=== PATIENT | female | born 1980 | race African-American/Black ===

== ENCOUNTER 2017-05-01 09:11 | Emergency (ER) | payer OTHER ==
[2017-05-01 09:21] VITALS: BP 121/94; PULSE 96; TEMP 97.9; BMI 53.4
[2017-05-01] MEDS ORDERED: IBUPROFEN 600 MG TABLET (FP) PO ONE ×2 (10:12→10:13)
--- NOTE | 2017-05-01 10:16 | PDOC ---
History of Present Illness - General Chief Complaint: Chronic pain Stated Complaint: SWOLLEN KNEE Time Seen by Provider: 05/01/17 09:32 History Source: Patient Exam Limitations: No Limitations - History of Present Illness Initial Comments: 05/01/17 10:13 Agent here with complaints of bilateral knee pain. onset was in her left knee approximately one week ago and now has migrated to both sides. feels they are hypermobile and does not feel particularly stable. Denies numbness or tingling to feet. 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 Has never had a true incident where she feels incurred an injury. has had a weight gain the past few months and may have some relationship to her knee pain. He took Aleve last night with minimal resolved. Timing/Duration: unsure, 1 week Severity: mild, moderate Associated Symptoms: reports: denies symptoms Past History - Travel Traveled outside of the country in the last 30 days: No Close contact w/someone who was outside of country & ill: No - Past Medical History Allergies/Adverse Reactions: Allergies Allergy/AdvReac Type Severity Reaction Status Date / Time No Known Allergies Allergy Verified 05/01/17 09:17 Home Medications: Ambulatory Orders Naproxen 500 mg PO TID #30 tablet 05/01/17 COPD: No Diabetes: Yes (IDDM) HTN: Yes - Suicide/Smoking/Psychosocial Hx Smoking History: Never smoked Hx Alcohol Use: No Drug/Substance Use Hx: No Review of Systems - Review of Systems Able to Perform ROS?: Yes Is the patient limited Yoruba proficient: Yes Constitutional: Yes: See HPI. No: Symptoms Reported, Fever, Malaise HEENTM: Yes: See HPI. No: Symptoms Reported Respiratory: Yes: See HPI. No: Symptoms reported Cardiac (ROS): No: Symptoms Reported Musculoskeletal: Yes: Symptoms Reported, See HPI, Joint Pain, Joint Swelling, Muscle Pain *Physical Exam - Vital Signs Last Vital Signs Temp Pulse Resp BP Pulse Ox 97.9 F 96 H 20 121/94 98 05/01/17 09:17 05/01/17 09:17 05/01/17 09:17 05/01/17 09:17 05/01/17 09:17 - Physical Exam General Appearance: Yes: Appropriately Dressed, Apparent Distress HEENT: positive: LAMINE, Normal ENT Inspection, TMs Normal, Pharynx Normal Neck: positive: Supple. negative: Tender Respiratory/Chest: positive: Lungs Clear Musculoskeletal: positive: Decreased Range of Motion (due to pain,). negative: Normal Inspection, Vertebral Tenderness Extremity: positive: Normal Capillary Refill, Other (patellas are mobile, with no crepitus or step-offs however with movement reproduces lateral and medial pain. Difficult to examinedue to patient's obesity. Neurovascular intact to feet without any peripheral edema. ). negative: Normal Inspection, Normal Range of Motion Integumentary: positive: Normal Color, Dry, Warm Medical Decision Making - Medical Decision Making 05/01/17 10:46 X-rays with multiple bone spurs and evidence of arthritic changes, no fractures or dislocation. Right worse than left. We'll provide Derrick wrap, recommend neoprene sleeve, NSAIDs and follow-up with orthopedist. Encouraged to discuss weight loss program PMD assist with orthopedic and diabetic issues. 05/01/17 12:01 *DC/Admit/Observation/Transfer Diagnosis at time of Disposition: Strain of knee, bilateral - Discharge Dispostion Disposition: HOME Condition at time of disposition: Stable Admit: No - Prescriptions Prescriptions: Naproxen 500 mg PO TID #30 tablet - Referrals Referrals: Yaima Templeton MD [Primary Care Provider] - Yovany Izquierdo MD [Staff Physician] - - Patient Instructions Printed Discharge Instructions: DI for Knee Pain Additional Instructions: Rest, ice to area on and off for 15 minutes 4-6 times a day Avoid heavy lifting or exercise until pain and swelling is resolved or until further directed Keep area highly elevated to reduce swelling Use splints/Derrick wrap as directed Followup with orthopedist in one to 2 days if not improving, if significantly improved may wait one week for followup with orthopedist May use Apperson 500 mg tablet every 8 hours as needed for pain - Post Discharge Activity Forms/Work/School Notes: Back to Work
== END 2017-05-01 10:54 | disposition home or self-care (01) ==
LOC: JER 09:11
DX: S83.8X2A Sprain of other specified parts of left knee, initial encounter (principal); S83.8X1A Sprain of other specified parts of right knee, initial encounter; X50.9XXA Other and unspecified overexertion or strenuous movements or postures, initial encounter; Y93.F2 Activity, caregiving, lifting; Y92.89 Other specified places as the place of occurrence of the external cause; Y99.0 Civilian activity done for income or pay; I10 Essential (primary) hypertension; E11.9 Type 2 diabetes mellitus without complications; Z79.4 Long term (current) use of insulin
CPT/HCPCS: 73562-TC-LT-FY; 73562-TC-RT-FY; 99281-25

== ENCOUNTER 2019-08-08 09:46 | Emergency (ER) | payer OTHER ==
[2019-08-08 10:00] VITALS: BP 142/101; PULSE 103; TEMP 98.3; BMI 52.9
[2019-08-08] MEDS ORDERED: KETOROLAC TROMETHAMINE 15 MG/ML VIAL IM ONE (10:44)
[2019-08-08] MEDS ORDERED: LIDOCAINE 5% TOPICAL PATCH TP ONE (10:44)
[2019-08-08] MEDS ORDERED: CYCLOBENZAPRINE HCL 10 MG TABLET (FP) ONE (10:55)
[2019-08-08] MEDS ORDERED: LIDOCAINE 5% TOPICAL PATCH ONE (10:56)
[2019-08-08] MEDS ORDERED: KETOROLAC TROMETHAMINE 30 MG/1 ML VIAL ONE (10:56)
--- NOTE | 2019-08-08 11:14 | PDOC ---
History of Present Illness - General Chief Complaint: Back Pain Stated Complaint: BACK PAIN Time Seen by Provider: 08/08/19 10:20 - History of Present Illness Initial Comments: 08/08/19 11:45 HPI: 38 y/o f hx of mixed connective tissue disease, htn, diabetes, chronic left leg pain s/p 3 falls a year ago presents with pain from left buttock down to the thigh. Pt reports she has this pain at baseline, but it worsened yesterday. she describe pain as sharp pain shooting down her left leg from hr left buttock. She denies any recent trauma/falls yesterday. Pain is exacerbated by movement, and pt, though able to ambulate, does so with some difficulty. She has taken naproxen at home yesterday with no relief. She denies TABOR, vision change, palpitations, cough, wheezing, orthopena, PND, nausea, vomiting, fevers, chills. chest pain, SOB, urinary/bowel complaints, hematuria, BPR, abdominal pain, diarrhea, constipation, lightheadedness, weakness, sensory changes. PMHx: as noted above ROS: as noted SHx: Denies Etoh, IVDA, tobacco use Allergies: NKDA ROS: GENERAL/CONSTITUTIONAL: No fever or chills. No weakness. HEAD, EYES, EARS, NOSE AND THROAT: No change in vision. No ear pain or discharge. No sore throat. CARDIOVASCULAR: No chest pain or shortness of breath RESPIRATORY: No cough, wheezing, or hemoptysis. GASTROINTESTINAL: No nausea, vomiting, diarrhea or constipation. GENITOURINARY: No dysuria, frequency, or change in urination. MUSCULOSKELETAL: No joint or muscle swelling or pain. No neck or back pain. SKIN: No rash NEUROLOGIC: No headache, vertigo, loss of consciousness, or change in strength/sensation. ENDOCRINE: No increased thirst. No abnormal weight change HEMATOLOGIC/LYMPHATIC: No anemia, easy bleeding, or history of blood clots. ALLERGIC/IMMUNOLOGIC: No hives or skin allergy. PE: GENERAL: Awake, alert, and fully oriented, in no acute distress HEAD: No signs of trauma, normocephalic, atraumatic EYES: PERRLA, EOMI, sclera anicteric, conjunctiva clear ENT: Auricles normal inspection, hearing grossly normal, nares patent, oropharynx clear without exudates. Moist mucosa NECK: Normal ROM, supple, no lymphadenopathy, JVD, or masses LUNGS: No distress, speaks full sentences, clear to auscultation bilaterally HEART: Regular rate and rhythm, normal S1 and S2, no murmurs, rubs or gallops, peripheral pulses normal and equal bilaterally. ABDOMEN: Soft, nontender, normoactive bowel sounds. No guarding, no rebound. No masses BACK: no midline spinal tenderness. negative SLR EXTREMITIES : ttp left buttock. ttp posterior left thigh to knee. NEUROLOGICAL: Cranial nerves II through XII grossly intact. numbness and tingling of left foot. 4/5 strength on left, 5/5 strength right. SKIN: Warm, Dry, normal turgor, no rashes or lesions noted 08/08/19 11:51 08/08/19 18:15 Past History - Medical History Allergies/Adverse Reactions: Allergies Allergy/AdvReac Type Severity Reaction Status Date / Time No Known Allergies Allergy Verified 08/08/19 09:56 Home Medications: Ambulatory Orders Naproxen 500 mg PO TID #30 tablet 05/01/17 Cyclobenzaprine HCl [Flexeril 10 mg] 10 mg PO ONCE 7 Days #7 tablet 08/08/19 COPD: No Diabetes: Yes (IDDM) HTN: Yes - Psycho-Social/Smoking History Smoking History: Never smoked - Substance Abuse Hx (Audit-C & DAST Scrn) How often the patient has six or more drinks on one occasion: Never Score: In Men: 4 or > Positive; In Women: 3 or > Positive: 0 Screen Result (Pos requires Nsg. Audit-10AR): Negative In the last yr the pt used illegal drug/Rx for NonMed reason: No Score: Yes response is considered Positive: 0 Screen Result (Positive result requires Nsg. DAST-10): Negative *Physical Exam - Vital Signs Last Vital Signs Temp Pulse Resp BP Pulse Ox 98.3 F 103 H 16 142/101 H 99 08/08/19 09:57 08/08/19 09:57 08/08/19 09:57 08/08/19 09:57 08/08/19 09:57 ED Treatment Course - Medications Given in the ED: ED Medications Discontinued Medications Generic Name Dose Route Start Last Admin Trade Name Freq PRN Reason Stop Dose Admin Ketorolac Tromethamine 15 mg 08/08/19 10:44 08/08/19 11:02 Toradol Injection - IM 08/08/19 10:45 15 mg ONCE ONE Administration Lidocaine 1 patch 08/08/19 10:44 08/08/19 11:02 Lidoderm Patch - TP 08/08/19 10:45 1 patch ONCE ONE Administration Medical Decision Making - Medical Decision Making 08/08/19 11:46 38 y/o f hx of mixed connective tissue disease, htn, diabetes, chronic left leg pain s/p 3 falls a year ago presents with pain from left buttock down to the thigh. pt with no bowel/bladder symptoms. meds: toradol IM, flexeril, lidocaine patch . 08/08/19 11:56 pt improved on reassesment feeling well enough to return home d/c with flexeril prescription for a few days and instructions to follow up with primary care provider 08/08/19 18:20 Discharge - Discharge Information Problems reviewed: Yes Clinical Impression/Diagnosis: Leg pain Qualifiers: Laterality: left Qualified Code(s): M79.605 - Pain in left leg Condition: Stable Disposition: HOME - Additional Discharge Information Prescriptions: Cyclobenzaprine HCl [Flexeril 10 mg] 10 mg PO ONCE 7 Days #7 tablet - Follow up/Referral Referrals: Yaiam Templeton MD [Primary Care Provider] - - Patient Discharge Instructions Patient Printed Discharge Instructions: DI for Leg Pain Additional Instructions: Name of over the counter patch: Lidocaine 4% patch Please follow up with your Primary Care Doctor within 48-72 hours - call for an appointment. Ambulate as tolerated and no heavy lifting. Take Motrin/aleve 600 mg every 8 hours for pain with food, you can alternate with 650 of tylenol as well. Flexeril should be taken at night once daily. do not drive or make any important decisions while on this medication for it can make you drowsy. If you experience any worsening pain, swelling, numbness, weakness please return to ER - Post Discharge Activity
--- NOTE | 2019-08-08 12:08 | PDOC ---
Documentation entered by Adela Taylor SCRIBE, acting as scribe for Kevin Clark MD. Kevin Clark MD: This documentation has been prepared by the Brandon miles Maria, SCRIBE, under my direction and personally reviewed by me in its entirety. I confirm that the documentation accurately reflects all work, treatment, procedures, and medical decision making performed by me. Attending Attestation - Resident Resident Name: MaryRaquel - ED Attending Attestation I have performed the following: I have examined & evaluated the patient, The case was reviewed & discussed with the resident, I agree w/resident's findings & plan, Exceptions are as noted - HPI HPI: 08/08/19 11:56 The patient is a 38 year old female with a significant past medical history of IDDM and HTN who presents to the emergency department with 2 days of buttock pain.As per patient, the pain started yesterday and describes it as a gradual onset of worsening buttock pain that radiates to her lower leg. Denies any numbness, tingling, or focal weakness. Patient states that she has chronic back pain, and is able to just walk off the pain. She reports taking Aleve for her pain with no relief. Denies any recent trauma or fall. She denies recent fevers, chills, headache or dizziness. She denies recent nausea, vomit, diarrhea or constipation. She denies recent dysuria, frequency, urgency or hematuria. She denies recent chest pain or shortness of breath. - Physicial Exam PE: 08/08/19 11:50 GENERAL: The patient is awake, alert, and fully oriented, Nontoxic - in no acute distress. HEAD: Normocephalic, atraumatic. EYES: extraocular movements intact, sclera anicteric, conjunctiva clear. EXTREMITIES: Normal range of motion, no edema. BACK: No focl bony or soft tissue tenderness in thorckc/lumbar spine. mild ttp wth palpation of L buttock. NEUROLOGICAL: No facial assymetry, Normal speech, moving all 4 exremities spontaneously and symmerically, normal hip/knee/plantar flexion/extension - Medical Decision Making 08/08/19 11:55 suspect sciatica no red flags p feeling improved with flexeril, toradol/lido pach will dc wh supportive care return precautions were discussed Discharge - Discharge Information Problems reviewed: Yes Clinical Impression/Diagnosis: Sciatica Qualifiers: Laterality: left Qualified Code(s): M54.32 - Sciatica, left side Condition: Stable Disposition: HOME - Additional Discharge Information Prescriptions: Cyclobenzaprine HCl [Flexeril 10 mg] 10 mg PO ONCE 7 Days #7 tablet - Follow up/Referral Referrals: Yaima Templeton MD [Primary Care Provider] - - Patient Discharge Instructions Patient Printed Discharge Instructions: DI for Leg Pain Additional Instructions: Name of over the counter patch: Lidocaine 4% patch Please follow up with your Primary Care Doctor within 48-72 hours - call for an appointment. Ambulate as tolerated and no heavy lifting. Take Motrin/aleve 600 mg every 8 hours for pain with food, you can alternate with 650 of tylenol as well. Flexeril should be taken at night once daily. do not drive or make any important decisions while on this medication for it can make you drowsy. If you experience any worsening pain, swelling, numbness, weakness please return to ER - Post Discharge Activity
[2019-08-08] MEDS ORDERED: LIDOCAINE PATCH REMOVAL MC SCH (22:00)
[2019-08-09] MEDS ORDERED: CYCLOBENZAPRINE HCL 5 MG TABLET PO ONE (10:44)
== END 2019-08-08 12:10 | disposition home or self-care (01) ==
LOC: JER 09:46
PROC: 3E0233Z Introduction of Anti-inflammatory into Muscle, Percutaneous Approach (ICD-10-PCS; principal; 2019-08-08)
DX: M79.605 Pain in left leg (principal)
CPT/HCPCS: 96372; 99284-25

== ENCOUNTER 2021-01-14 20:16 | Emergency (ER) | payer OTHER ==
[2021-01-14 20:22] VITALS: TEMP 98.3; BMI 56.5
[2021-01-14 21:23] LABS: BASO % 0.5 % (0-2.0); EOS % 2.2 % (0-4.5); HEMATOCRIT 37.4 % (32.4-45.2); HEMOGLOBIN 12.5 GM/dL (10.7-15.3); LYMPH % 30.5 % (8-40); MCH 26.6 pg (25.7-33.7); MCHC 33.5 g/dl (32.0-36.0); MEAN CELL VOLUME 79.4 fl (80-96); MEAN PLT VOLUME 10.2 fl (7.5-11.1); MONO % 6.2 % (3.8-10.2); NEUT % 60.6 % (42.8-82.8); PLATELET COUNT 248 10^3/uL (134-434); RBC 4.71 M/mm3 (3.60-5.2); RDW 14.3 % (11.6-15.6); WHITE BLOOD COUNT 9.5 K/mm3 (4.0-10.0)
[2021-01-14 21:50] LABS: CHLORIDE 104 mmol/L (98-107); SODIUM 137 mmol/L (136-145)
[2021-01-14 21:52] LABS: CALCIUM 9.1 mg/dL (8.5-10.1)
[2021-01-14 21:53] LABS: ALBUMIN 3.1 g/dl (3.4-5.0); ANION GAP 6 MMOL/L (8-16); BLOOD UREA NITROGEN 17.1 mg/dL (7-18); CO2 27 mmol/L (21-32); GLUCOSE,RANDOM 351 mg/dL (74-106)
[2021-01-14 21:56] LABS: SGOT/AST 14 U/L (15-37); SGPT/ALT 21 U/L (13-61)
[2021-01-14 21:58] LABS: BILIRUBIN,TOTAL 0.2 mg/dL (0.2-1); TOT PROT 7.5 g/dl (6.4-8.2)
[2021-01-14 21:59] LABS: ALK PHOS 92 U/L (45-117)
[2021-01-14 23:01] VITALS: BP 138/90; PULSE 94
== END 2021-01-15 01:08 | disposition home or self-care (01) ==
LOC: JER 20:16
DX: R07.9 Chest pain, unspecified (principal)
CPT/HCPCS: 36415; 71046-TC-FY; 80053; 82550; 82553; 84484; 84703; 85025; 85379; 93971-TC; 99285-25

== ENCOUNTER 2021-12-20 11:12 | Emergency (ER) | payer OTHER ==
[2021-12-20 11:32] VITALS: BP 116/86; PULSE 99; RESP 18; TEMP 98.1; BMI 53.8
[2021-12-20] MEDS ORDERED: ACETAMINOPHEN 500 MG TABLET (FP) PO ONE (12:37)
[2021-12-20] MEDS ORDERED: FAMOTIDINE 10 MG TABLET PO ONE (12:37)
[2021-12-20] MEDS ORDERED: MAG HYDROX/AL HYDROX/SIMETH 30 ML UNIT-DOSE CUP PO ONE (12:37)
[2021-12-20] MEDS ORDERED: MECLIZINE HCL 25 MG TABLET (FP) PO ONE (12:37)
[2021-12-20] MEDS ORDERED: MAG HYDROX/AL HYDROX/SIMETH 30 ML UNIT-DOSE CUP ONE (12:41)
[2021-12-20] MEDS ORDERED: ACETAMINOPHEN 500 MG TABLET (FP) ONE (12:41)
[2021-12-20] MEDS ORDERED: FAMOTIDINE 10 MG TABLET ONE (12:41)
[2021-12-20] MEDS ORDERED: MECLIZINE HCL 25 MG TABLET (FP) ONE (12:41)
[2021-12-20] MEDS ORDERED: METOCLOPRAMIDE HCL INJECTION 10 MG/2 ML VIAL IVPUSH ONE (12:50)
[2021-12-20] MEDS ORDERED: METOCLOPRAMIDE HCL INJECTION 10 MG/2 ML VIAL ONE (12:54)
[2021-12-20 13:41] LABS: BASO % 0.4 % (0-2.0); EOS % 3.4 % (0-4.5); HEMATOCRIT 37.1 % (32.4-45.2); HEMOGLOBIN 12.1 GM/dL (10.7-15.3); LYMPH % 31.2 % (8-40); MCH 26.2 pg (25.7-33.7); MCHC 32.5 g/dl (32.0-36.0); MEAN CELL VOLUME 80.6 fl (80-96); MEAN PLT VOLUME 10.7 fl (7.5-11.1); MONO % 6.7 % (3.8-10.2); NEUT % 58.3 % (42.8-82.8); PLATELET COUNT 316 10^3/uL (134-434); RDW 14.2 % (11.6-15.6); WHITE BLOOD COUNT 8.6 K/mm3 (4.0-10.0)
[2021-12-20 13:57] LABS: ALBUMIN 3.3 g/dl (3.4-5.0); BLOOD UREA NITROGEN 16.6 mg/dL (7-18); CALCIUM 9.3 mg/dL (8.5-10.1)
[2021-12-20 14:01] LABS: CREATININE 0.9 mg/dL (0.55-1.3)
[2021-12-20 14:03] LABS: BILIRUBIN,TOTAL 0.3 mg/dL (0.2-1); TOT PROT 7.5 g/dl (6.4-8.2)
== END 2021-12-20 16:27 | disposition home or self-care (01) ==
LOC: JER 11:12
PROC: 3E033GC Introduction of Other Therapeutic Substance into Peripheral Vein, Percutaneous Approach (ICD-10-PCS; principal; 2021-12-20)
DX: R42 Dizziness and giddiness (principal); R07.9 Chest pain, unspecified; R51.9 Headache, unspecified
CPT/HCPCS: 36415; 71046-TC-FY; 80053; 84484; 84703; 85025; 93005; 93010; 99285-25

== ENCOUNTER 2022-04-03 14:50 | Emergency (ER) | payer OTHER ==
[2022-04-03 14:58] VITALS: RESP 18; BMI 119.9
[2022-04-03] MEDS ORDERED: ASPIRIN 81 MG CHEWABLE TABLETS PO ONE (15:45)
[2022-04-03] MEDS ORDERED: ASPIRIN 81 MG CHEWABLE TABLETS ONE (15:51)
[2022-04-03 17:25] LABS: BASO % 0.5 % (0-2.0); EOS % 1.9 % (0-4.5); EPI CELLS >36 /uL (0-25.1); HCG,QUALITATIVE URINE Negative; HEMATOCRIT 35.3 % (32.4-45.2); HEMOGLOBIN 11.9 GM/dL (10.7-15.3); HYALINE CASTS 0 /uL (0-3.1); LYMPH % 29.7 % (8-40); MCHC 33.6 g/dl (32.0-36.0); MEAN CELL VOLUME 80.3 fl (80-96); NEUT % 60.9 % (42.8-82.8); PLATELET COUNT 289 10^3/uL (134-434); RDW 14.5 % (11.6-15.6); URINE APPEARANCE CLOUDY; URINE BACTERIA 283 /uL (0-1359); URINE BILIRUBIN NEGATIVE (NEGATIVE); URINE COLOR YELLOW; URINE GLUCOSE (UA) NEGATIVE (NEGATIVE); URINE KETONE NEGATIVE (NEGATIVE); URINE LEUK ESTERASE TRACE (NEGATIVE); URINE NITRITE NEGATIVE (NEGATIVE); URINE PROTEIN NEGATIVE (NEGATIVE); URINE RBC 8 /uL (0-23.9); URINE UROBILINOGEN 0.2 mg/dL (0.2-1.0); URINE WBC 38 /uL (0-25.8); WHITE BLOOD COUNT 10.4 K/mm3 (4.0-10.0)
[2022-04-03 17:31] LABS: INR 1.12 (0.83-1.09)
[2022-04-03 17:34] LABS: ACTIVATED PTT 37.1 SECONDS (25.2-36.5)
[2022-04-03 17:53] LABS: CALCIUM 8.9 mg/dL (8.5-10.1)
[2022-04-03 17:54] LABS: ALBUMIN 3.3 g/dl (3.4-5.0); BLOOD UREA NITROGEN 17.3 mg/dL (7-18); MAGNESIUM 1.8 mg/dL (1.8-2.4)
[2022-04-03 17:57] LABS: CREATININE 0.9 mg/dL (0.55-1.3)
[2022-04-03 17:59] LABS: BILIRUBIN,TOTAL 0.3 mg/dL (0.2-1); TOT PROT 7.5 g/dl (6.4-8.2)
[2022-04-03 19:13] VITALS: BP 142/90; PULSE 89; TEMP 98
== END 2022-04-03 21:16 | disposition home or self-care (01) ==
LOC: JER 14:50
DX: F41.9 Anxiety disorder, unspecified (principal)
CPT/HCPCS: 36415; 71046-TC-FY; 80053; 81003; 83735; 84439; 84443; 84484; 84703; 85025; 85379; 85610; 85730; 93005; 93010; 99285-25